=== PATIENT | male | born 1965 | race Caucasian/White ===

== ENCOUNTER 2023-05-19 10:49 | Outpatient (REF) | payer OTHER, SELFPAY ==
--- NOTE | ~2023-05-19 | US_ITS ---
EXAMINATION: US LEFT LOWER QUADRANT ABDOMINAL WALL, LIMITED/FOLLOW UP CLINICAL INFORMATION: Abdominal wall pain. COMPARISON: None available. TECHNIQUE: Using a linear transducer with grayscale and color modalities, ultrasound examination is performed of the left lower quadrant abdominal wall. FINDINGS: The cutaneous, subcutaneous, muscular and fascial planes are unremarkable. No mass or fluid collection is seen. There is no focal hernia defect. No foreign body is seen. US/US pelvic limited IMPRESSION: Unremarkable examination.
== END 2023-05-19 10:50 | disposition home or self-care (01) ==
LOC: HO.UMASIMG 10:49
PROVIDERS: PCP Emergency Medicine; Visit Provider Internal Medicine
DX: R10.32 Left lower quadrant pain (principal)
CPT/HCPCS: 76857